=== PATIENT | male | born 1950 | race Caucasian/White ===

== ENCOUNTER 2022-03-31 15:34 | Inpatient (IN) | payer OTHER ==
[~2022-03-31] VITALS: Ht 177.8 cm; Wt 102.1 kg
--- NOTE | 2022-03-31 15:39 | NUR ---
RAMIN RA100, pt to room 4B. Per EMS the patient was found on the floor of his apartment by a friend. The pt may have been down for as many as three days per report.
[2022-03-31] MEDS ORDERED: IV NORMAL SALINE 500 ML BAG IV ONE (15:45)
[2022-03-31 16:07] LABS: HEMATOCRIT 37.7 % (36.7-47.1); MEAN CORPUSCULAR HEMOGLOBIN 30.2 uug (23.8-33.4); MEAN CORPUSCULAR VOLUME 90.1 fL (73.0-96.2); PLATELET COUNT (AUTO) 308 K/uL (152-348)
[2022-03-31 16:15] LABS: CARBON DIOXIDE 28 mmol/L (21-32); CHLORIDE 100 mmol/L (98-107); CREATININE 1.2 mg/dL (0.6-1.3); GLUCOSE 92 mg/dL (74-106); POTASSIUM 3.8 mmol/L (3.5-5.1); UREA NITROGEN, BLOOD 32 mg/dL (7-18)
[2022-03-31 16:30] LABS: ALANINE AMINOTRANSFERASE 78 U/L (16-63); ALKALINE PHOSPHATASE 95 U/L (50-136); ASPARTATE AMINOTRANSFERASE 287 U/L (15-37); BILIRUBIN,DIRECT 0.4 mg/dL (0.0-0.2); BILIRUBIN,TOTAL 0.8 mg/dL (0.2-1.0); TOTAL PROTEIN, SERUM 7.5 g/dL (6.4-8.2)
[2022-03-31 16:31] LABS: ACETAMINOPHEN < 2.0 ug/mL (10-30)
[2022-03-31 16:32] LABS: ETHANOL < 3 MG/DL (0-0)
--- NOTE | 2022-03-31 18:00 | NUR ---
Received telephone call from Camelia from [facility]. Requested information provided, Camelia stated the patient will be transfered but she does not know which facility yet. States she will call back with further information.
--- NOTE | 2022-03-31 18:01 | NUR ---
pt difficult stick attempted x 2 - line blown 2nd RN to attempt
--- NOTE | 2022-03-31 20:49 | NUR ---
RESTARTED IV FLUIDS PER ORDER ON LEFT UPPER ARM MIDLINE #18G.
--- NOTE | 2022-03-31 21:34 | NUR ---
Patient had a BM. Incontinent care provided.
[2022-03-31] MEDS ORDERED: OXYCODONE/APAP 5-325 MG TABLET PO ONE (21:45)
[2022-03-31] MEDS ORDERED: OXYCODONE/APAP 5-325 MG TABLET ONE (21:47)
--- NOTE | 2022-03-31 22:32 | NUR ---
[facility] panel call placed, spoke to Natalie, she stated she will get a hold of Dr. Rj Call for admitting.
--- NOTE | 2022-03-31 22:35 | NUR ---
Called 3rd floor spoke to charge nurse Charge nurse Anali for bed on [facility]. Stated she will call back.
--- NOTE | 2022-03-31 22:37 | NUR ---
Dr. Rasheed on panel call with Dr Call. Patient accepted for admission to [facility] unit. Dx Rhabdomyolysis.
--- NOTE | 2022-04-01 00:48 | NUR ---
Called third floor to give report to RN Rosanna, spoke to Charge nurse Anali. Stated that Rosanna will call me back.
--- NOTE | 2022-04-01 01:01 | NUR ---
Telephone call to [facility] to give report to BOB Marte. Still not ready for a report. Stated that she will call back.
--- NOTE | 2022-04-01 01:50 | NUR ---
72Y/O PATIENT RECEIVED FROM ER FOR ADMISSION TO MED SURG UNIT BY JOSH TO ROOM 325. UNDER CARE OF DR. MIRAMONTES WITH DX GENERALIZED WEAKNESS, SBO, RHABDOMYOLYSIS, NEUROPATHY, PROSTATE PROBLEM.PATIENT GENTLY TRANSFERRED TO BED FIXED AND MADE COMFORTABLE. PATIENT IS ALERT COOPERATIVE. PATIENT HAS MULTIPLE DRY SCABS. PATIENT IS CONTINENT USES URINAL. PERICARE PROVIDED AND KEPT CLEAN DRY AND COMFORTABLE. NO SOB OR RESP DISTRESS NOTED. NO C/O CHEST PAIN. PATIENT HAS TUTU MIDLINE G#18.
--- NOTE | 2022-04-01 01:55 | NUR ---
Pt. admitted to Med Surg Unit Room #316, under care of Dr. Rj Call. Belongings List completed. BOB Marte given report.
[2022-04-01 02:29] VITALS: BP 116/64
[2022-04-01 04:26] VITALS: BP 108/65
[2022-04-01] MEDS ORDERED: ONDANSETRON 4 MG/2 ML VIAL IV PRN (04:30)
[2022-04-01] MEDS ORDERED: REMEDY ESSENTIAL ZINC PASTE 113 GM TP PRN (04:30)
[2022-04-01] MEDS ORDERED: MAGNESIUM HYDROXIDE 30 ML LIQUID UDC PO PRN (04:30)
[2022-04-01] MEDS ORDERED: FLEET ENEMA 133 ML BOTTLE RC ONE (04:30)
[2022-04-01] MEDS: IV LACTATED RINGERS SOLUTION 1,000 ML IV PRN ×2 (04:53→16:21)
[2022-04-01] MEDS: LACTULOSE 20 G/30 ML LIQUID UDC PO SCH ×3 (06:00→17:40)
[2022-04-01] MEDS ORDERED: PIPERACILLIN SODIUM/TAZOBACTAM 3.375 G in IV DEXTROSE 5% 50 ML IV SCH ×2 (06:00→14:00)
[2022-04-01] MEDS ORDERED: PIPERACILLIN/TAZOBACTAM/D5W 50 ML IV ONE (06:19)
[2022-04-01] MEDS: ACETAMINOPHEN 325 MG TABLET PO PRN ×2 (06:30→18:03)
[2022-04-01 07:17] LABS: HEMATOCRIT 35.7 % (36.7-47.1); MEAN CORPUSCULAR HEMOGLOBIN 29.6 uug (23.8-33.4); MEAN CORPUSCULAR VOLUME 90.2 fL (73.0-96.2); PLATELET COUNT (AUTO) 317 K/uL (152-348)
[2022-04-01 07:33] LABS: CARBON DIOXIDE 27 mmol/L (21-32); CHLORIDE 100 mmol/L (98-107); GLUCOSE 88 mg/dL (74-106); MAGNESIUM 2.3 mg/dL (1.8-2.4); POTASSIUM 3.8 mmol/L (3.5-5.1); UREA NITROGEN, BLOOD 25 mg/dL (7-18)
[2022-04-01] MEDS ORDERED: DIATR MEGLU/DIATRIZOATE SODIUM 30 ML BOTTLE ONE (09:34)
[2022-04-01 11:52] VITALS: BP 111/70
[2022-04-01 11:55] VITALS: BP 120/73
[2022-04-01] MEDS: PIPERACILLIN SODIUM/TAZOBACTAM 3.375 G in IV DEXTROSE 5% 100 ML IV SCH ×2 (13:36→21:36)
[2022-04-01] MEDS ORDERED: OMEP20CA15 PO (14:42)
[2022-04-01] MEDS ORDERED: LISI10TA29 PO (14:42)
[2022-04-01 16:26] VITALS: BP 119/71
--- NOTE | 2022-04-01 19:40 | NUR ---
Received patient laying in bed comfortably. AAOx4.No signs of distress or complaining of any pain at this time. TUTU midline is intact and patent. Running LR at 80cc/hr. Endorsed safety and comfort measures.
[2022-04-01 20:00] VITALS: BP 100/59
[2022-04-01] MEDS: ZOLPIDEM 5 MG TABLET PO PRN (21:37)
--- NOTE | 2022-04-01 21:45 | NUR ---
Called Calvin and is aware about DUPLEX VENOUS LOW EXT BI/COMPL study ordered by DR. CAO.
[2022-04-01] MEDS ORDERED: IV NS 1000 ML 1,000 ML IV PRN (22:00)
[2022-04-01] MEDS ORDERED: ENOXAPARIN SODIUM 40 MG/0.4 ML DISP.SYRIN SQ SCH (22:00)
[2022-04-01] MEDS ORDERED: LORAZEPAM 2 MG/1 ML VIAL IV PRN (22:00)
--- NOTE | 2022-04-01 22:00 | NUR ---
New order of Vancomycin 2mg in 500ml D5 bag (once) was ordered by the doctor at this time. Cannot administer at this moment d/t antibiotic incompatibility with Zosyn currently running. Will administer once scheduled Zosyn is completed. New IV on Left FA was inserted for LR to run at 80cc/hr.
[2022-04-01] MEDS ORDERED: VANCOMYCIN IV 2,000 MG in IV DEXTROSE 5% 500 ML IV ONE (22:15)
[2022-04-02] MEDS ORDERED: VANCOMYCIN 1000 MG VIAL ONE (02:32)
[2022-04-02 04:00] VITALS: BP 122/75
[2022-04-02] MEDS: ACETAMINOPHEN 325 MG TABLET PO PRN ×3 (04:49→16:54)
--- NOTE | 2022-04-02 07:00 | NUR ---
Patient slept comfortably throughout the night. No complaints of pain or distress at this time. TUTU IV access is running Zosyn at 25cc/hr at this time. No signs of adverse reaction towards antibiotics were noted. All needs were attended to and met. Safety and comfort measures were maintained.
[2022-04-02] MEDS: PIPERACILLIN SODIUM/TAZOBACTAM 3.375 G in IV DEXTROSE 5% 100 ML IV SCH ×3 (07:24→22:53)
[2022-04-02 07:37] LABS: HEMATOCRIT 27.8 % (36.7-47.1); MEAN CORPUSCULAR HEMOGLOBIN 30.2 uug (23.8-33.4); MEAN CORPUSCULAR VOLUME 89.8 fL (73.0-96.2); PLATELET COUNT (AUTO) 299 K/uL (152-348)
[2022-04-02 08:05] LABS: BILIRUBIN,TOTAL 0.4 mg/dL (0.2-1.0); PHOSPHOROUS 2.1 mg/dL (2.5-4.9); POTASSIUM 3.2 mmol/L (3.5-5.1); TOTAL PROTEIN, SERUM 5.3 g/dL (6.4-8.2)
[2022-04-02 08:10] LABS: THYROID STIMULATING HORMONE 0.417 mIU/mL (0.358-3.740)
[2022-04-02 08:15] LABS: LIPASE 91 U/L (73-393)
[2022-04-02 11:48] VITALS: BP 111/66
[2022-04-02 15:48] VITALS: BP 128/73
[2022-04-02] MEDS ORDERED: SODIUM PHOSPHATE MM 15 MMOL in IV NORMAL SALINE 250 ML IV ONE (17:00)
--- NOTE | 2022-04-02 19:30 | NUR ---
Received patient laying in bed resting comfortably. No complaints of pain and SOB was noted. On 2L NC, 97% O2 sat. TUTU IV access is intake and patent. Concerns were communicated and patient verbally understands. Safety and comfort measures were enforced.
[2022-04-02 20:00] VITALS: BP 142/80
[2022-04-02] MEDS ORDERED: VANCOMYCIN IV 1,500 MG in IV DEXTROSE 5% 500 ML IV SCH (20:00)
[2022-04-02] MEDS ORDERED: ENOXAPARIN SODIUM 40 MG/0.4 ML DISP.SYRIN SQ SCH ×2 (21:00→21:30)
[2022-04-02] MEDS: MAG HYDROX/AL HYDROX/SIMETH 30 ML LIQUID UDC PO PRN (21:58)
[2022-04-02] MEDS ORDERED: MAG HYDROX/AL HYDROX/SIMETH 30 ML LIQUID UDC PO PRN (22:00)
[2022-04-02] MEDS: ENOXAPARIN SODIUM 100 MG/ML DISP.SYRIN SQ SCH (22:00)
--- NOTE | 2022-04-02 22:00 | NUR ---
Lovenox was non-administered d/t US BLE showing nonocclusive thrombus of the right popliteal vein. Dr. Mera was alerted on results and non-administration.
[2022-04-03 01:54] LABS: *OCCULT BLOOD STOOL NEGATIVE (NEGATIVE)
[2022-04-03 04:00] VITALS: BP 140/88
[2022-04-03] MEDS: PIPERACILLIN SODIUM/TAZOBACTAM 3.375 G in IV DEXTROSE 5% 100 ML IV SCH (06:27)
[2022-04-03 06:39] LABS: HEMATOCRIT 35.5 % (36.7-47.1); MEAN CORPUSCULAR HEMOGLOBIN 29.5 uug (23.8-33.4); MEAN CORPUSCULAR VOLUME 89.5 fL (73.0-96.2); PLATELET COUNT (AUTO) 412 K/uL (152-348)
--- NOTE | 2022-04-03 06:50 | NUR ---
Patient was agitated intermittently in the middle of the night. Ativan was given, was effective. Provided non-pharmacological approach for uncomfort. Was able to rest intermittently throughout the night. No complaints of pain and SOB noted at this time. IV access is positional, patent and intact when giving through the TUTU making administration difficult to run smoothly at times. BMx2 during shift. Stool occult blood specimen was sent and tested negative. Safety and comfort measures maintained. All needs were attended to and met.
[2022-04-03 07:07] LABS: IRON, SERUM 12 ug/dL (50-175)
[2022-04-03] MEDS: PROTEIN SUPPLEMENT (PROSTAT) 30 ML LIQUID PO SCH ×3 (08:00→17:00)
[2022-04-03 08:10] LABS: CARBON DIOXIDE 28 mmol/L (21-32); CHLORIDE 100 mmol/L (98-107); CREATININE 1.5 mg/dL (0.6-1.3); FERRITIN 289 ng/mL (26-388); GLUCOSE 147 mg/dL (74-106); MAGNESIUM 2.2 mg/dL (1.8-2.4); PHOSPHOROUS 1.7 mg/dL (2.5-4.9); POTASSIUM 3.5 mmol/L (3.5-5.1); UREA NITROGEN, BLOOD 27 mg/dL (7-18)
[2022-04-03] MEDS: ENOXAPARIN SODIUM 100 MG/ML DISP.SYRIN SQ SCH (10:23)
--- NOTE | 2022-04-03 11:03 | NUR ---
Social work consult was requested for a patient on medsurg to assess current living situation. Patient is 72-year-old white male admitted to the hospital for chronic bilateral pedal edema and poor mobility. Patient states he was on the floor of his apartment for 3 days and could not get up. Patient is alert and oriented X4. Patient presents with anxious mood and congruent affect. Patient states his primary contact his is niece, Lindsey Henriquez ([phone]), who lives close by, and they have a good relationship. Patient states he lives alone at [address] [place] [address] in [address]. 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 Patient states he is not driving, has a cane at home, and does not have home health services. Patient denies a history of substance abuse. Patient denies a history of psychiatric diagnosis. Patient denies suicidal or homicidal ideation. JEANIE made an APS report Intake ID [id number] for self-neglect and placed a copy in the patients chart. Patient states he is open to going to a penitentiary facility at discharge and JEANIE informed case loader operatorLuis.
[2022-04-03 11:46] VITALS: BP 143/88
[2022-04-03] MEDS ORDERED: MEROPENEM 1 G in IV NORMAL SALINE 100 ML IV SCH (14:00)
[2022-04-03] MEDS ORDERED: SODIUM PHOSPHATE MM 15 MMOL in IV NORMAL SALINE 250 ML IV ONE (16:00)
[2022-04-03 16:04] VITALS: BP 161/98
[2022-04-03 20:00] VITALS: BP 151/67
[2022-04-03] MEDS ORDERED: VANCOMYCIN IV 1,500 MG in IV DEXTROSE 5% 500 ML IV SCH (20:00)
[2022-04-03] MEDS ORDERED: PANTOPRAZOLE SODIUM 40 MG TABLET.DR PO ONE (20:30)
[2022-04-03] MEDS: MAG HYDROX/AL HYDROX/SIMETH 30 ML LIQUID UDC PO PRN (20:40)
[2022-04-03] MEDS: ZOLPIDEM 5 MG TABLET PO PRN (20:41)
--- NOTE | 2022-04-04 00:50 | NUR ---
patient down grade to telemetry by Eligio Cloud. Addendum: 04/04/22 at 0052 by GLADYS SEYMOUR RN patient down grade to telemetry by Eligio cloud. charting in error.
[2022-04-04] MEDS: ENOXAPARIN SODIUM 100 MG/ML DISP.SYRIN SQ SCH ×3 (01:33→22:07)
--- NOTE | 2022-04-04 01:57 | NUR ---
Rec'd at 1900 C/o Gastric reflux Pt takes prilosec at home, stated that it works for him so he can sleep. Call placed to MD order received for stat dose and qd. pt with urinary retention Bladder distended on palpation Pending Urologist visit for catheter insertion. Urologist at bedside at 2100 Santana catheter inserted 1000mls urine drained. Pt more cofortable. Medicated with prn meds.
[2022-04-04 04:00] VITALS: BP 126/83
[2022-04-04] MEDS: PANTOPRAZOLE SODIUM 40 MG TABLET.DR PO SCH ×2 (06:27→10:33)
[2022-04-04 06:42] LABS: HEMATOCRIT 33.3 % (36.7-47.1); MEAN CORPUSCULAR HEMOGLOBIN 29.5 uug (23.8-33.4); MEAN CORPUSCULAR VOLUME 89.3 fL (73.0-96.2); PLATELET COUNT (AUTO) 430 K/uL (152-348)
[2022-04-04 06:53] LABS: ALANINE AMINOTRANSFERASE 46 U/L (16-63); ALKALINE PHOSPHATASE 81 U/L (50-136); ASPARTATE AMINOTRANSFERASE 30 U/L (15-37); BILIRUBIN,TOTAL 0.4 mg/dL (0.2-1.0); CARBON DIOXIDE 28 mmol/L (21-32); CHLORIDE 102 mmol/L (98-107); CREATININE 2.5 mg/dL (0.6-1.3); GLUCOSE 100 mg/dL (74-106); MAGNESIUM 2.5 mg/dL (1.8-2.4); PHOSPHOROUS 5.2 mg/dL (2.5-4.9); POTASSIUM 3.8 mmol/L (3.5-5.1); TOTAL PROTEIN, SERUM 6.4 g/dL (6.4-8.2); UREA NITROGEN, BLOOD 40 mg/dL (7-18)
--- NOTE | 2022-04-04 07:04 | NUR ---
Urine output good. Pt slept for long periods. Bilateral pedal edema persist.
[2022-04-04 07:25] LABS: *BILIRUBIN,URIN NEGATIVE (NEGATIVE); *BLOOD, URINE 3+ (NEGATIVE); *CLARITY,URINE CLEAR (CLEAR); *COLOR,URINE YELLOW (YELLOW); *KETONES,URINE NEGATIVE (NEGATIVE); *UROBILINOGEN,URINE 0.2 E.U./dl (NORMAL); LEUKOCYTE ESTERASE ,URINE NEGATIVE (NEGATIVE); NITRITE, URINE NEGATIVE (NEGATIVE); PH,URINE 5.5 (5.0-8.0); UGLUCOSE NEGATIVE (NEGATIVE)
[2022-04-04 07:49] LABS: *CREATININE,URINE 17.4 mg/dL (30-125); *URINE TOTAL PROTEIN RANDOM 58.1 mg/dL (<150/24HR)
[2022-04-04] MEDS: PROTEIN SUPPLEMENT (PROSTAT) 30 ML LIQUID PO SCH ×3 (08:00→17:00)
[2022-04-04] MEDS: TAMSULOSIN HCL 0.4 MG CAP.SR.24H PO SCH ×2 (10:33→21:56)
[2022-04-04 11:10] LABS: BACTERIA,URINE FEW /HPF (NONE SEEN); RBC,URINE 0-3 /HPF (0-3); SQUAMOUS EPITHELIAL CELL,UR FEW /HPF (NONE SEEN); WBC,URINE 0-3 /HPF (0-3)
[2022-04-04 12:52] VITALS: BP 130/75
[2022-04-04 14:22] LABS: CARBON DIOXIDE 30 mmol/L (21-32); CHLORIDE 102 mmol/L (98-107); CREATININE 2.4 mg/dL (0.6-1.3); GLUCOSE 99 mg/dL (74-106); POTASSIUM 3.8 mmol/L (3.5-5.1); UREA NITROGEN, BLOOD 44 mg/dL (7-18)
[2022-04-04 16:13] VITALS: BP 119/74
[2022-04-04] MEDS: LINEZOLID IV 600 MG in PREMIXED 1 EACH IV SCH (19:13)
[2022-04-04 20:43] VITALS: BP 110/69
[2022-04-05] MEDS: LINEZOLID IV 600 MG in PREMIXED 1 EACH IV SCH ×2 (05:32→17:07)
[2022-04-05 05:46] VITALS: BP 135/81
--- NOTE | 2022-04-05 07:18 | NUR ---
Santana remains insitu. output good. Continue on antibiotics.
[2022-04-05 07:37] LABS: HEMATOCRIT 31.9 % (36.7-47.1); MEAN CORPUSCULAR HEMOGLOBIN 29.7 uug (23.8-33.4); PLATELET COUNT (AUTO) 479 K/uL (152-348)
[2022-04-05 08:01] LABS: CARBON DIOXIDE 31 mmol/L (21-32); CHLORIDE 103 mmol/L (98-107); CREATININE 2.2 mg/dL (0.6-1.3); GLUCOSE 108 mg/dL (74-106); MAGNESIUM 2.5 mg/dL (1.8-2.4); PHOSPHOROUS 4.9 mg/dL (2.5-4.9); POTASSIUM 3.6 mmol/L (3.5-5.1); UREA NITROGEN, BLOOD 40 mg/dL (7-18)
[2022-04-05] MEDS: PROTEIN SUPPLEMENT (PROSTAT) 30 ML LIQUID PO SCH ×3 (08:25→17:07)
[2022-04-05] MEDS: TAMSULOSIN HCL 0.4 MG CAP.SR.24H PO SCH ×2 (08:25→21:36)
[2022-04-05] MEDS: ENOXAPARIN SODIUM 100 MG/ML DISP.SYRIN SQ SCH ×2 (08:35→21:38)
[2022-04-05 12:25] VITALS: BP 129/78
[2022-04-05] MEDS: HYDROCODONE/APAP 5-325MG TABLET PO PRN ×2 (14:06→21:42)
[2022-04-05 14:42] VITALS: BP 133/74
--- NOTE | 2022-04-05 18:11 | NUR ---
patient is alert, oriented x4, no sob, respirations are even nonlabored, skin warm and dry to touch, oneil in place, draining yellow color urine, 3000ml output during shift, patient had only one BM during shift, kept clean and dry, good mart care provided, no skin issues noted at this time, no sacral skin issues noted at this time, no perineal redness noted, still noted with pitting edema to lower extremities. needs attended timely.
[2022-04-05 20:00] VITALS: BP 139/68
[2022-04-05] MEDS: ZOLPIDEM 5 MG TABLET PO PRN (21:42)
[2022-04-06] VITALS (20 sets, daily range): BP systolic 52–113; BP diastolic 32–88
[2022-04-06] MEDS: REMEDY ESSENTIAL ZINC PASTE 113 GM TP SCH ×2 (01:31→08:41)
[2022-04-06] MEDS: PANTOPRAZOLE SODIUM 40 MG TABLET.DR PO SCH (06:10)
[2022-04-06] MEDS: LINEZOLID IV 600 MG in PREMIXED 1 EACH IV SCH (06:10)
[2022-04-06] MEDS ORDERED: NOREPINEPHRINE BITARTRATE 8 MG in IV NORMAL SALINE 242 ML IV PRN (06:45)
--- NOTE | 2022-04-06 07:04 | NUR ---
Pt Stable until at 0415 vital signs. Pt with low bp72/44 repeat 87/42.MAP. Patient asymptomatic. Heart rate 108 Afebrile, Positioned in [place] position. Text placed to DR JOSHI re patient's status. Reply No New Orders. Continue to monitor patient's Status . Repeated BP fluctuating systolic 72 t0 87 Diastolic 40's to low %50's. Mean remained between 47-55. At 0600 pt c/o pain in LLQ and Mid lower abdomen and some dizzinesss. @nd call placed to MD Ct abdomen and pelvis ordered No improvement in BP MD order to transfer patient to CCU. Report given to Tori. Pt transferred to CCU.
--- NOTE | 2022-04-06 07:43 | NUR ---
Received pt. from Third floor via own bed accompanied by charge nurse and primary rn. Patient AAOX4. body temp of 99.9 rectally patient cold to touch, with c/of abdominal pain /. Heart rate of 100-120 sbp of 90/46. RR within desire limits. respirations shallow. saturation of 99%. Will continue with care plan.
[2022-04-06 08:13] LABS: MEAN CORPUSCULAR VOLUME 90.4 fL (73.0-96.2)
[2022-04-06 08:15] LABS: ALANINE AMINOTRANSFERASE 29 U/L (16-63); ALKALINE PHOSPHATASE 56 U/L (50-136); ASPARTATE AMINOTRANSFERASE 31 U/L (15-37); BILIRUBIN,TOTAL 0.3 mg/dL (0.2-1.0); CARBON DIOXIDE 24 mmol/L (21-32); CHLORIDE 102 mmol/L (98-107); CREATININE 2.5 mg/dL (0.6-1.3); GLUCOSE 202 mg/dL (74-106); MAGNESIUM 2.1 mg/dL (1.8-2.4); PHOSPHOROUS 6.1 mg/dL (2.5-4.9); POTASSIUM 4.3 mmol/L (3.5-5.1); TOTAL PROTEIN, SERUM 5.3 g/dL (6.4-8.2); UREA NITROGEN, BLOOD 39 mg/dL (7-18)
[2022-04-06 08:16] LABS: MEAN CORPUSCULAR HEMOGLOBIN 29.3 uug (23.8-33.4); PLATELET COUNT (AUTO) 433 K/uL (152-348)
[2022-04-06] MEDS: TAMSULOSIN HCL 0.4 MG CAP.SR.24H PO SCH (08:39)
[2022-04-06] MEDS: PROTEIN SUPPLEMENT (PROSTAT) 30 ML LIQUID PO SCH ×2 (08:41→12:00)
[2022-04-06] MEDS: ENOXAPARIN SODIUM 100 MG/ML DISP.SYRIN SQ SCH (08:53)
--- NOTE | 2022-04-06 09:00 | NUR ---
Courtesy call made to pt's daughter Lindsey Henriquez ([phone]) notified of patient was transferred to ICu for closer monitoring per drs order.
--- NOTE | 2022-04-06 09:00 | NUR ---
Attending called to be notified of high HR and orders to change vasopressor received, and implemented.
[2022-04-06 09:02] LABS: HEMATOCRIT 18.9 % (36.7-47.1)
[2022-04-06] MEDS: HYDROCODONE/APAP 5-325MG TABLET PO PRN (09:42)
[2022-04-06] MEDS ORDERED: PHENYLEPHRINE IV 100 MG in IV NORMAL SALINE 240 ML IV PRN (10:00)
[2022-04-06] MEDS ORDERED: MEROPENEM 500 MG in IV NORMAL SALINE 50 ML IV SCH (10:45)
--- NOTE | 2022-04-06 10:45 | NUR ---
Pulmonary services Dr. Marion in the unit to see and examine pt. orders for stat ABG received and bolus of 500ml NS.
[2022-04-06] MEDS ORDERED: SODIUM BICARBONATE 8.4% 50 MEQ/50 ML DISP.SYRIN IV ONE ×3 (11:00→14:00)
--- NOTE | 2022-04-06 11:05 | NUR ---
At this time patient decompensating feeling short of breath Cna Dr. Marion in the unit and ABG in progress but unable to obtain specimen. Patient pale cool to touch clammy barely responsive.
--- NOTE | 2022-04-06 11:20 | NUR ---
Patient intubated by Websphere Commerce Architect Dr. Marion with no need of medications. ETT 7.5, 23 LL. A/C 18, TV 500 FIO2 50% with intubation patient received a total of 4 doses of sodium bicarb ordered verbally by tacking stitch remover Dr. Marion at bedside. Addendum: 04/06/22 at 1228 by STARLA ABDI RN 1 liter normal saline bolus. NG-T inserted. and X-ray taken after insertion for ETT and NG placement.
[2022-04-06 11:39] LABS: ABG BASE EXCESS -14.1 mmol/L; ABG HCO3 12.1 mmol/L; ABG PCO2 28.8 mmHg (35.0-45.0); ABG PO2 428.7 mmHg (75.0-100.0); ABG SITE RIGHT FEMORAL; ABG TOTAL HEMOGLOBIN 4.8 G/dL (13.5-18.0); COHb 0.3 % (0.5-1.5); MetHb 0.6 % (0.0-1.5); O2Hb 98.6 % (94.0-97.0); VT, ABG 500 mL
--- NOTE | 2022-04-06 11:45 | NUR ---
Attending Toro Hoff int he unit and with Dr. Marion sales account director present in the unit a discussion of care plan took place.
[2022-04-06] MEDS ORDERED: MEROPENEM 1 G in IV NORMAL SALINE 100 ML IV SCH (12:00)
[2022-04-06] MEDS ORDERED: MIDAZOLAM HCL 50 MG in IV NORMAL SALINE 40 ML IV PRN (12:00)
--- NOTE | 2022-04-06 12:30 | NUR ---
called and informed that urine output is low contrary to reports this morning. No signs of bleeding through the catheter.
[2022-04-06] MEDS ORDERED: IV NS 1000 ML 1,000 ML IV ONE (13:00)
[2022-04-06] MEDS ORDERED: NOREPINEPHRINE BITARTRATE 32 MG in IV NORMAL SALINE 218 ML IV PRN (13:15)
[2022-04-06 13:16] LABS: ABG BASE EXCESS -17.1 mmol/L; ABG HCO3 9.8 mmol/L; ABG PCO2 27.4 mmHg (35.0-45.0); ABG PH 7.173 (7.350-7.450); ABG PO2 119.8 mmHg (75.0-100.0); ABG SITE A-Line; ABG TOTAL HEMOGLOBIN 5.5 G/dL (13.5-18.0); COHb 0.1 % (0.5-1.5); MetHb 0.5 % (0.0-1.5); O2Hb 96.8 % (94.0-97.0); VT, ABG 500 mL
--- NOTE | 2022-04-06 13:27 | NUR ---
fOLLOW UP ABG results called to Dr. Marion orders to give 2 amps of bicarbonate 8.4 and to start pt. on bicarb drip with 3 amps of bicarb in D5Wto be run at 75cc/hrs and decrease current IV fluid to 50cc/hr.
[2022-04-06] MEDS ORDERED: SODIUM BICARBONATE 8.4% 150 MEQ in IV D5W 1000ML 1,000 ML IV PRN (13:30)
--- NOTE | 2022-04-06 14:30 | NUR ---
From this time on Unable to obtain both non-invasive and arterial SBP. called and informed.
--- NOTE | 2022-04-06 15:25 | NUR ---
A call to attending to update him on unreadable SBP both arterial and Non-invasive orders will be placed.
[2022-04-06 15:29] LABS: LYMPHOCYTES % (MANUAL) 6 % (20-40); MONOCYTES % (MANUAL) 5 % (2-10); NEUTROPHILS % (MANUAL) 89 % (42-75)
[2022-04-06] MEDS ORDERED: DOPamine IV DRIP 400 MG/250ML 250 ML IV PRN (15:30)
--- NOTE | 2022-04-06 15:30 | NUR ---
At this time patient heart rate continue trending down was notified and while awaiting for dobutamine as ordered, pt. went asystole. colette marion called at this time. compressions initiated. 1535 compressions in progress and patient received one dose of epinephrine.Colette marion called from pt's room and called the emergency number with no response until the second call.
--- NOTE | 2022-04-06 15:35 | NUR ---
E.R. Physician in the unit code blue continue with pulses checks and administration of emergency meds. Patient remains in the asystole, despite been max out on vasopressors been on bicarb drip. after recommended ACLS patient pronounced at [address] Casillas.
--- NOTE | 2022-04-06 15:50 | NUR ---
Patient apneic for one minute. Pupils fixed and dilated. No audible heart sounds. No breath sounds for one minute. No palpable pulses for one minute. No corneal reflexes. Patient pronounced by Dr. Vinny Snowden physician. with attending Dr. Engel present in the room.
[2022-04-06] MEDS ORDERED: EPINEPHRINE 1:10,000 1 MG/10 ML DISP.SYRIN IV ONE (15:58)
--- NOTE | 2022-04-06 16:00 | NUR ---
A call from Dr. Engel while I was reporting to [facility]. This call was to informed me that He had spoken to pt's next of kin Nephew Joseph. Carter, and that he had spoken to them and answer all of his questions.
--- NOTE | 2022-04-06 16:33 | NUR ---
A call to [facility] and spoke with coordinator aPrminder full report given and as stated. Patient is eligible for organ donation with referral number of R# [id number] and they will call within the next hour.
--- NOTE | 2022-04-06 18:00 | NUR ---
Post mortem care provided and body ready to be pick-up and taken down to the morgue belongings will be going down with pt. to the morgue. Provider Network Manager Alex notified.
--- NOTE | 2022-04-06 19:15 | NUR ---
At this time oracle security consultant and hot dip plating supervisor in the unit to pick up truck driver the body to be taken down to the morgue.
--- NOTE | 2022-04-06 19:15 | NUR ---
AT this time a lady that did not give her name came up to the unit claiming to be pt's niece and came up to see pt. She wanted to scrap picker keys and other belongings with ramp supervisor at bedside she was informed that belongings needed it to be scrap picker by pt's nephew. Mr. Carter Henry. Addendum: 04/06/22 at 1955 by STARLA ABDI RN She was informed on procedure to follow to claim pt's body from the morgue and was given nursing office phone number.
--- NOTE | 2022-04-06 19:25 | NUR ---
A call from someone called Mirtha stating at this time "I have the power if litigation attorney associate for MR. Rush and I'm requesting autopsy to be done on him Because He was perfectly fine this morning". Mirtha was informed that she's not listed as the next and could no longer give her more information I provided her with nursing white sugar supervisor phone number to call and proceed with legalities if needed it.
--- NOTE | 2022-04-06 19:37 | NUR ---
A call from [facility] and on the phone Effie coordinator was informed that pt's body went down to the [facility]. And was updated on "Mirtha's call stating She has the power of claims attorney on Mr. Rush".
== END 2022-04-06 19:53 | DRG 871 ==
LOC: ER 15:34 → MEDSURG3 22:48 → CCU 04-06 07:39
PROVIDERS: ADMIT Internal Medicine; ATTEND Internal Medicine
PROC: 05H633Z Insertion of Infusion Device into Left Subclavian Vein, Percutaneous Approach (ICD-10-PCS; 2022-03-31)
PROC: B547ZZA Ultrasonography of Left Subclavian Vein, Guidance (ICD-10-PCS; 2022-03-31)
PROC: 5A12012 Performance of Cardiac Output, Single, Manual (ICD-10-PCS; principal; 2022-04-06)
PROC: 5A1935Z Respiratory Ventilation, Less than 24 Consecutive Hours (ICD-10-PCS; 2022-04-06)
PROC: 0BH18EZ Insertion of Endotracheal Airway into Trachea, Via Natural or Artificial Opening Endoscopic (ICD-10-PCS; 2022-04-06)
DX: A41.9 Sepsis, unspecified organism (principal); E43 Unspecified severe protein-calorie malnutrition; G92.8 Other toxic encephalopathy; N17.0 Acute kidney failure with tubular necrosis; M62.82 Rhabdomyolysis; L03.115 Cellulitis of right lower limb; L03.116 Cellulitis of left lower limb; I82.431 Acute embolism and thrombosis of right popliteal vein; D68.69 Other thrombophilia; L02.612 Cutaneous abscess of left foot; R74.01 Elevation of levels of liver transaminase levels; I10 Essential (primary) hypertension; Z20.822 Contact with and (suspected) exposure to COVID-19; I48.0 Paroxysmal atrial fibrillation; Z87.891 Personal history of nicotine dependence; E83.39 Other disorders of phosphorus metabolism; R53.1 Weakness; M19.90 Unspecified osteoarthritis, unspecified site; Z74.09 Other reduced mobility; E87.6 Hypokalemia; G62.9 Polyneuropathy, unspecified; R33.8 Other retention of urine; R33.9 Retention of urine, unspecified; E66.9 Obesity, unspecified; Z68.32 Body mass index [BMI] 32.0-32.9, adult; D64.9 Anemia, unspecified; N40.0 Benign prostatic hyperplasia without lower urinary tract symptoms
CPT/HCPCS: 36415; 36600; 70030-TC; 70450; 71045; 72125; 73700; 74250; 76770; 83550; 83605; 83690; 83735; 84100; 84156; 84300; 84443; 84484; 85025; 85651; 85730; 86140; 86850; 86900; 86901; 86920; 92950; 93005; 94002; 97535-GO-CO; A4663; A6213; G0378; G0480; J0171; J1650; J2020; J2060; J2185; J2250; J2370; J2543; J3370; J3490; J7040; J7060; J7070; J7120; Q9963